=== PATIENT | male | born 1990 | race Caucasian/White ===

== ENCOUNTER 2019-07-21 00:09 | Emergency (ER) | payer OTHER ==
[~2019-07-21] VITALS: Ht 177.8 cm; Wt 75.0 kg
[2019-07-21 00:10] VITALS: BP 141/89
[2019-07-21] MEDS ORDERED: IBUP-1986 PO (01:04)
== END 2019-07-21 01:17 | disposition home or self-care (01) ==
LOC: ER 00:10
DX: S43.081A Other subluxation of right shoulder joint, initial encounter (principal); Z79.899 Other long term (current) drug therapy; X58.XXXA Exposure to other specified factors, initial encounter; Y93.89 Activity, other specified; Y92.89 Other specified places as the place of occurrence of the external cause; Y99.8 Other external cause status
CPT/HCPCS: 29105; 73030; 99283